=== PATIENT | female | born 1980 | race Two or more races ===

== ENCOUNTER → 2016-10-30 | Outpatient (REF) | payer BC ==
[~2016-10-30] MED LIST: KEFLEX PO; KENALOG TOP
== END ==
LOC: M SFHCPLAZ 09:25
PROVIDERS: ATTEND Physician Assistant
DX: E78.2 Mixed hyperlipidemia (principal)

== ENCOUNTER → 2016-11-13 | Outpatient (REF) | payer BC ==
[2016-11-13 12:35] LABS: ALBUMIN 3.9 GM/DL (3.2-5.2); ALBUMIN/GLOBULIN RATIO 1.34 (1.00-1.93); ALKALINE PHOSPHATASE 63 U/L (45-117); ALT/SGPT 25 U/L (12-78); ANION GAP 11 MEQ/L (8-16); AST/SGOT 20 U/L (15-37); BILIRUBIN,TOTAL 0.7 MG/DL (0.2-1.0); BLOOD UREA NITROGEN 17 MG/DL (7-18); CARBON DIOXIDE LEVEL 31 MEQ/L (21-32); CHLORIDE LEVEL 100 MEQ/L (98-107); CREATININE FOR GFR 0.89 MG/DL (0.55-1.02); GLOMERULAR FILTRATION RATE > 60.0 (>60); GLUCOSE, FASTING 79 MG/DL (70-105); MAGNESIUM LEVEL 1.9 MG/DL (1.8-2.4); POTASSIUM SERUM 3.3 MEQ/L (3.5-5.1); SODIUM LEVEL 142 MEQ/L (136-145); TOTAL PROTEIN 6.8 GM/DL (6.4-8.2)
== END ==
LOC: M SFHCPLAZ 09:29
PROVIDERS: ATTEND Physician Assistant
DX: I10 Essential (primary) hypertension (principal)

== ENCOUNTER → 2016-12-25 | Outpatient (REF) | payer BC ==
[2016-12-25 12:48] LABS: ALBUMIN 3.8 GM/DL (3.2-5.2); ALBUMIN/GLOBULIN RATIO 1.36 (1.00-1.93); ALKALINE PHOSPHATASE 60 U/L (45-117); ALT/SGPT 18 U/L (12-78); ANION GAP 8 MEQ/L (8-16); AST/SGOT 17 U/L (15-37); BILIRUBIN,TOTAL 0.8 MG/DL (0.2-1.0); BLOOD UREA NITROGEN 11 MG/DL (7-18); CARBON DIOXIDE LEVEL 28 MEQ/L (21-32); CHLORIDE LEVEL 105 MEQ/L (98-107); CREATININE FOR GFR 0.92 MG/DL (0.55-1.02); GLOMERULAR FILTRATION RATE > 60.0 (>60); GLUCOSE, FASTING 89 MG/DL (70-105); POTASSIUM SERUM 3.8 MEQ/L (3.5-5.1); SODIUM LEVEL 141 MEQ/L (136-145); TOTAL PROTEIN 6.6 GM/DL (6.4-8.2)
== END ==
LOC: M SFHCPLAZ 09:25
PROVIDERS: ATTEND Physician Assistant
DX: I10 Essential (primary) hypertension (principal)

== ENCOUNTER → 2017-01-31 | Outpatient (REF) | payer BC | LOC: M SFHCPLAZ 09:56 | PROVIDERS: ATTEND Family Medicine | DX: M79.1 Myalgia (principal) ==

== ENCOUNTER → 2018-11-29 | Outpatient (CLI) | payer BC ==
[2018-11-29 17:01] LABS: ALBUMIN 4.2 GM/DL (3.2-5.2); ALT/SGPT 18 U/L (12-78); BLOOD UREA NITROGEN 12 MG/DL (7-18); CARBON DIOXIDE LEVEL 24 MEQ/L (21-32); CHLORIDE LEVEL 104 MEQ/L (98-107); CHOLESTEROL LEVEL 281 MG/DL (<200); CHOLESTEROL RISK RATIO 4.762 (<5); CREATININE FOR GFR 0.87 MG/DL (0.55-1.30); GLOMERULAR FILTRATION RATE > 60.0 (>60); GLUCOSE, FASTING 76 MG/DL (70-100); HDL CHOLESTEROL 59 MG/DL (>40); LDL CHOLESTEROL 199 MG/DL (<100); NON-HDL-C 222 MG/DL; POTASSIUM SERUM 3.2 MEQ/L (3.5-5.1); SODIUM LEVEL 139 MEQ/L (136-145); TOTAL PROTEIN 7.2 GM/DL (6.4-8.2); TRIGLYCERIDES LEVEL 114 MG/DL (<150)
== END ==
LOC: M WUC 14:02
PROVIDERS: ATTEND Family Medicine
DX: Z86.39 Personal history of other endocrine, nutritional and metabolic disease (principal)

== ENCOUNTER 2018-12-27 13:48 | Emergency (ER) | payer BC ==
[~2018-12-27] VITALS: Ht 167.6 cm; Wt 70.5 kg
[2018-12-27] MEDS ORDERED: ATOR40TA75 (13:55)
[2018-12-27] MEDS ORDERED: CHLO125TA (13:55)
[2018-12-27 15:56] LABS: BASO % 0.3 % (0.0-1.0); EOS # 0.3 10^3/uL (0.0-0.50); EOS % 3.5 % (0.0-3.0); HEMATOCRIT 40.7 % (36.0-47.0); HEMOGLOBIN 14.6 g/dl (12.0-15.5); LYMPH # 1.3 10^3/uL (1.5-4.5); LYMPH % 13.7 % (24.0-44.0); MEAN CORPUSCULAR HEMOGLOBIN 32.7 pg (27.0-33.0); MEAN CORPUSCULAR HGB CONC 35.9 g/dl (32.0-36.5); MEAN CORPUSCULAR VOLUME 91.3 fl (80.0-96.0); MONO # 0.4 10^3/uL (0.0-0.8); MONO % 4.4 % (0.0-5.0); NEUTROPHILS # 7.1 10^3/uL (1.8-7.7); NEUTROPHILS % 77.7 % (36.0-66.0); PLATELET COUNT, AUTOMATED 195 10^3/uL (150-450); RED BLOOD COUNT 4.46 10^6/uL (4.00-5.40); WHITE BLOOD COUNT 9.2 10^3/uL (4.0-10.0)
[2018-12-27 15:59] LABS: INFLUENZA A AMPLIFICATION NEGATIVE (NEGATIVE); INFLUENZA B AMPLIFICATION NEGATIVE (NEGATIVE)
[2018-12-27 16:33] LABS: BLOOD UREA NITROGEN 9 MG/DL (7-18); CALCIUM LEVEL 8.4 MG/DL (8.5-10.1); CARBON DIOXIDE LEVEL 27 MEQ/L (21-32); CHLORIDE LEVEL 100 MEQ/L (98-107); CREATININE FOR GFR 0.79 MG/DL (0.55-1.30); GLOMERULAR FILTRATION RATE > 60.0 (>60); GLUCOSE, FASTING 99 MG/DL (70-100); POTASSIUM SERUM 2.4 MEQ/L (3.5-5.1); SODIUM LEVEL 138 MEQ/L (136-145)
[2018-12-27 17:09] VITALS: BP 127/86
[2018-12-27] MEDS ORDERED: POTASSIUM CHLORIDE 10% LIQ 20 MEQ/15 ML UDC PO ONE (17:15)
[2018-12-27] MEDS ORDERED: POTA20TA6 PO (17:19)
== END 2018-12-27 17:45 | disposition home or self-care (01) ==
LOC: M ED 13:48
DX: E87.6 Hypokalemia (principal); I10 Essential (primary) hypertension; E78.5 Hyperlipidemia, unspecified; Z79.899 Other long term (current) drug therapy

== ENCOUNTER → 2018-12-31 | Outpatient (CLI) | payer BC ==
[~2018-12-31] MED LIST changes: +ATOR40TA75; +CHLO125TA; +POTA20TA6 PO
[2018-12-31 19:23] LABS: BLOOD UREA NITROGEN 11 MG/DL (7-18); CALCIUM LEVEL 9.9 MG/DL (8.5-10.1); CARBON DIOXIDE LEVEL 28 MEQ/L (21-32); CHLORIDE LEVEL 109 MEQ/L (98-107); CREATININE FOR GFR 0.76 MG/DL (0.55-1.30); GLOMERULAR FILTRATION RATE > 60.0 (>60); GLUCOSE, FASTING 81 MG/DL (70-100); SODIUM LEVEL 142 MEQ/L (136-145)
== END ==
LOC: M WUC 16:55
PROVIDERS: ATTEND Hospitalist
DX: E87.6 Hypokalemia (principal)

== ENCOUNTER → 2019-12-26 | Outpatient (REF) | payer BC ==
[2019-12-26 13:20] LABS: CHOLESTEROL RISK RATIO 3.294 (<5)
== END ==
LOC: M SFHCPLAZ 09:55
PROVIDERS: ATTEND Family Medicine
DX: E78.00 Pure hypercholesterolemia, unspecified (principal)

== ENCOUNTER → 2020-01-28 | Outpatient (REF) | payer BC ==
[2020-01-28 13:25] LABS: BLOOD UREA NITROGEN 15 MG/DL (7-18); CALCIUM LEVEL 9.2 MG/DL (8.5-10.1); CARBON DIOXIDE LEVEL 27 MEQ/L (21-32); CHLORIDE LEVEL 106 MEQ/L (98-107); GLOMERULAR FILTRATION RATE > 60.0 (>58); GLUCOSE, FASTING 87 MG/DL (70-100); POTASSIUM SERUM 3.1 MEQ/L (3.5-5.1); SODIUM LEVEL 140 MEQ/L (136-145)
== END ==
LOC: M SFHCPLAZ 10:01
PROVIDERS: ATTEND Family Medicine
DX: I10 Essential (primary) hypertension (principal)

== ENCOUNTER → 2020-04-01 | Outpatient (REF) | payer BC | LOC: M LAB REF 09:17 | PROVIDERS: ATTEND Dermatology | DX: L81.4 Other melanin hyperpigmentation (principal); D23.61 Other benign neoplasm of skin of right upper limb, including shoulder; D22.4 Melanocytic nevi of scalp and neck ==

== ENCOUNTER 2023-03-05 21:27 | Emergency (ER) | payer OTHER, BC ==
[~2023-03-05] VITALS: Ht 165.1 cm; Wt 72.0 kg
[~2023-03-05 21:27] MED LIST changes: +POTA-151 PO; -POTA20TA6 PO
[2023-03-05 22:00] LABS: BASO # 0.1 10^3/uL (0.0-0.2); BASO % 1.1 % (0.0-1.0); EOS # 0.2 10^3/uL (0.0-0.5); EOS % 2.2 % (0.0-3.0); HEMATOCRIT 43.2 % (36.0-47.0); LYMPH # 3.4 10^3/uL (1.5-5.0); LYMPH % 35.4 % (24.0-44.0); MEAN CORPUSCULAR HEMOGLOBIN 33.1 pg (27.0-33.0); MEAN CORPUSCULAR HGB CONC 34.7 g/dl (32.0-36.5); MEAN CORPUSCULAR VOLUME 95.4 fl (80.0-96.0); MONO # 0.4 10^3/uL (0.0-0.8); MONO % 4.2 % (2.0-8.0); NEUTROPHILS # 5.4 10^3/uL (1.5-8.5); NEUTROPHILS % 56.8 % (36.0-66.0); PLATELET COUNT, AUTOMATED 230 10^3/uL (150-450); RED BLOOD COUNT 4.53 10^6/uL (4.00-5.40); WHITE BLOOD COUNT 9.5 10^3/uL (4.0-10.0)
[2023-03-05 22:01] VITALS: BP 122/68; O2SAT 98
[2023-03-05] MEDS ORDERED: BOOSTRIX VACCINE (TETANUS/DIPHTH/ACEL. PERTUSSIS) 0.5ML SYR IM.IMMUN ONE (22:55)
[2023-03-05 23:32] LABS: HIVEXPOSED0 NEGATIVE (NEGATIVE)
[2023-03-06 22:22] LABS: HEPATITIS B SURFACE ANTIGEN NEGATIVE (NEGATIVE)
[2023-03-06 22:44] LABS: HEPATITIS B CORE ANTIBODY IGM NEGATIVE (NEGATIVE); HEPATITIS C VIRUS ABY INDEX 0.08 INDEX (<0.8)
[2023-03-06 22:45] LABS: ALBUMIN 3.9 G/DL (3.2-5.2); ALKALINE PHOSPHATASE 65 U/L (46-116); ALT/SGPT < 9 U/L (7.0-40); AST/SGOT 15 U/L (<34); BILIRUBIN,TOTAL 0.5 MG/DL (0.3-1.2); BLOOD UREA NITROGEN 12 MG/DL (9-23); CARBON DIOXIDE LEVEL 22 MMOL/L (20-31); CHLORIDE LEVEL 109 MMOL/L (98-107); CREATININE FOR GFR 0.81 MG/DL (0.55-1.30); GLOMERULAR FILTRATION RATE > 60.0 (>58); GLUCOSE, FASTING 93 MG/DL (60-100); HEPATITIS B SURFACE ANTIBODY POSITIVE (POSITIVE); POTASSIUM SERUM 3.9 MMOL/L (3.5-5.1); SODIUM LEVEL 140 MMOL/L (136-145); TOTAL PROTEIN 6.3 G/DL (5.7-8.2)
== END 2023-03-06 01:31 | disposition home or self-care (01) ==
LOC: M ED 21:27
DX: Z77.21 Contact with and (suspected) exposure to potentially hazardous body fluids (principal); W46.1XXA Contact with contaminated hypodermic needle, initial encounter; I10 Essential (primary) hypertension; E78.5 Hyperlipidemia, unspecified; Y99.0 Civilian activity done for income or pay; Z79.02 Long term (current) use of antithrombotics/antiplatelets; Z79.899 Other long term (current) drug therapy

== ENCOUNTER → 2023-10-05 | Outpatient (REF) | LOC: M EMP 13:10 | PROVIDERS: ATTEND Family Medicine | DX: Z20.822 Contact with and (suspected) exposure to COVID-19 (principal) ==

== ENCOUNTER → 2024-01-18 | Outpatient (REF) | payer OTHER, BC | LOC: M SFHCDERM 17:38 | PROVIDERS: ATTEND Physician Assistant | DX: D22.5 Melanocytic nevi of trunk (principal) ==

== ENCOUNTER 2024-02-16 20:47 | Inpatient (IN) | payer BC, OTHER ==
[~2024-02-16] VITALS: Ht 167.6 cm; Wt 79.0 kg
[2024-02-16] MEDS: HYDROMORPHONE HCL 0.5 MG/ 0.5 ML SYRINGE IV PRN (21:03)
[2024-02-16 21:39] LABS: LIPASE 59 U/L (12-53)
[2024-02-16 21:41] LABS: ALBUMIN 3.7 G/DL (3.2-5.2); ALKALINE PHOSPHATASE 66 U/L (46-116); ALT/SGPT 18 U/L (7.0-40); AST/SGOT 17 U/L (<34); BILIRUBIN,DIRECT 0.1 MG/DL (<0.4); BILIRUBIN,TOTAL 0.5 MG/DL (0.3-1.2); BLOOD UREA NITROGEN 12 MG/DL (9-23); CALCIUM LEVEL 9.3 MG/DL (8.5-10.1); CARBON DIOXIDE LEVEL 21 MMOL/L (20-31); CHLORIDE LEVEL 112 MMOL/L (98-107); CREATININE FOR GFR 0.77 MG/DL (0.55-1.30); GLOMERULAR FILTRATION RATE > 60.0 (>58); GLUCOSE, FASTING 125 MG/DL (60-100); POTASSIUM SERUM 4.2 MMOL/L (3.5-5.1); SODIUM LEVEL 141 MMOL/L (136-145); TOTAL PROTEIN 6.2 G/DL (5.7-8.2)
[2024-02-16 22:34] LABS: BASO # 0.1 10^3/uL (0.0-0.2); BASO % 0.4 % (0.0-1.0); EOS # 0.1 10^3/uL (0.0-0.5); EOS % 0.6 % (0.0-3.0); HEMATOCRIT 41.5 % (36.0-47.0); HEMOGLOBIN 14.1 g/dl (12.0-15.5); LYMPH # 2.3 10^3/uL (1.5-5.0); LYMPH % 16.5 % (24.0-44.0); MEAN CORPUSCULAR HEMOGLOBIN 32.7 pg (27.0-33.0); MEAN CORPUSCULAR VOLUME 96.3 fl (80.0-96.0); MONO # 0.6 10^3/uL (0.0-0.8); MONO % 3.9 % (2.0-8.0); NEUTROPHILS # 10.9 10^3/uL (1.5-8.5); NEUTROPHILS % 77.8 % (36.0-66.0); RED BLOOD COUNT 4.31 10^6/uL (4.00-5.40)
[2024-02-16] MEDS ORDERED: LOSA50TA28 PO (22:44)
[2024-02-16] MEDS ORDERED: ROSU5TAB40 PO (22:44)
[2024-02-16] MEDS ORDERED: HOME MED LIST COMPLETE! XX SCH (22:45)
[2024-02-16] MEDS ORDERED: NORCO, ANEXSIA 5/325MG TABLET (HYDROcodone/ACETAMINOPHEN) PO PRN (23:20)
[2024-02-16] MEDS ORDERED: HYDROMORPHONE HCL 0.5 MG/ 0.5 ML SYRINGE IV PRN (23:35)
[2024-02-17] VITALS (19 sets, daily range): BP systolic 111–166; BP diastolic 70–104; TEMP 96–98.5; O2SAT 93–98
[2024-02-17] MEDS: HYDROMORPHONE HCL 0.5 MG/ 0.5 ML SYRINGE IV PRN ×3 (00:20→16:15)
[2024-02-17] MEDS: NS 1,000 ML IV SCH (01:41)
[2024-02-17] MEDS: cefTRIAXone SOD 1 GM in D5W MINI-BAG PLUS 50 ML IV SCH (01:41)
[2024-02-17] MEDS ORDERED: HYDROMORPHONE HCL 0.5 MG/ 0.5 ML SYRINGE IV PRN ×3 (01:55→09:15)
[2024-02-17] MEDS: HYDROMORPHONE HCL 0.5 MG/ 0.5 ML SYRINGE IV ONE (02:35)
[2024-02-17 04:52] LABS: HEMOGLOBIN 13.7 g/dl (12.0-15.5); MEAN CORPUSCULAR HEMOGLOBIN 33.2 pg (27.0-33.0); MEAN CORPUSCULAR HGB CONC 34.3 g/dl (32.0-36.5); MEAN CORPUSCULAR VOLUME 96.9 fl (80.0-96.0); PLATELET COUNT, AUTOMATED 150 10^3/uL (150-450); RED BLOOD COUNT 4.13 10^6/uL (4.00-5.40)
[2024-02-17 05:20] LABS: ALBUMIN 3.4 G/DL (3.2-5.2); ALKALINE PHOSPHATASE 56 U/L (46-116); ALT/SGPT 18 U/L (7.0-40); AST/SGOT 9 U/L (<34); BILIRUBIN,TOTAL 0.6 MG/DL (0.3-1.2); BLOOD UREA NITROGEN 11 MG/DL (9-23); CALCIUM LEVEL 8.9 MG/DL (8.5-10.1); CARBON DIOXIDE LEVEL 24 MMOL/L (20-31); CHLORIDE LEVEL 112 MMOL/L (98-107); CREATININE FOR GFR 0.79 MG/DL (0.55-1.30); GLOMERULAR FILTRATION RATE > 60.0 (>58); GLUCOSE, FASTING 119 MG/DL (60-100); POTASSIUM SERUM 4.3 MMOL/L (3.5-5.1); SODIUM LEVEL 142 MMOL/L (136-145); TOTAL PROTEIN 5.8 G/DL (5.7-8.2)
[2024-02-17] MEDS ORDERED: ONDANSETRON 4MG 2ML VIAL IV PRN (09:15)
[2024-02-17] MEDS ORDERED: fentaNYL 100 MCG/2 ML INJECTION IV PRN (09:15)
[2024-02-17] MEDS ORDERED: oxyCODONE 5MG TAB PO PRN (09:15)
[2024-02-17] MEDS: LR 1,000 ML IV SCH (09:15)
[2024-02-17] MEDS ORDERED: LIDOCAINE 2% 100MG/5ML SDV (FOR ANES.) As Ordered ONE (09:28)
[2024-02-17] MEDS ORDERED: MIDAZOLAM INJ 2MG/2ML VIAL As Ordered ONE (09:28)
[2024-02-17] MEDS ORDERED: fentaNYL 100 MCG/2 ML INJECTION As Ordered ONE (09:28)
[2024-02-17] MEDS ORDERED: propofoL 500 MG/50 ML VIAL As Ordered ONE (09:28)
[2024-02-17] MEDS ORDERED: KETAMINE HCL 200MG/20ML VIAL As Ordered ONE (09:33)
[2024-02-17] MEDS ORDERED: PHENYLephrine 500MCG 5ML (100MCG/ML) SYRINGE As Ordered ONE (10:04)
[2024-02-17] MEDS ORDERED: ePHEDrine SULFATE 25 MG/5 ML(5MG/ML) SYRINGE As Ordered ONE (10:04)
[2024-02-17] MEDS: ceFAZolin 2 GM/D5W 50 ML IV BAG As Ordered ONE (10:08)
[2024-02-17] MEDS ORDERED: ONDANSETRON 4MG 2ML VIAL As Ordered ONE (10:32)
[2024-02-17] MEDS ORDERED: PILL CUTTER 1 EACH XX ONE (12:33)
[2024-02-17] MEDS: ROSUVASTATIN 10 MG TAB (CRESTOR) PO SCH (12:37)
[2024-02-17] MEDS: LOSARTAN 25 MG TAB PO SCH (12:37)
[2024-02-17] MEDS: PERCOCET 5MG/325MG TAB PO PRN (14:42)
[2024-02-17] MEDS: KETOROLAC 30 MG/ML 1ML VIAL IV SCH (18:30)
[2024-02-17] MEDS: ceFAZolin SOD 2 GM in IV 1 EA IV SCH (20:23)
[2024-02-17] MEDS: HEPARIN SOD (PORCINE) 5000UNITS/ML 1ML VIAL/SYRINGE SQ SCH (20:24)
[2024-02-18 03:14] VITALS: BP 107/66; TEMP 97.6; O2SAT 95
[2024-02-18 07:47] VITALS: BP 116/78; TEMP 97.8; O2SAT 96
[2024-02-18] MEDS: ONDANSETRON 4MG 2ML VIAL IV SCH (09:20)
[2024-02-18 09:21] VITALS: BP 122/68
[2024-02-18] MEDS: MIRALAX *UNIT DOSE* 17GM PACKET PO SCH (09:21)
[2024-02-18] MEDS: ULTRACET TAB PO PRN (10:43)
[2024-02-18 12:27] VITALS: BP 106/64; TEMP 97.5; O2SAT 92
[2024-02-18] MEDS ORDERED: TRAM37.53 PO (14:13)
[2024-02-19] MEDS ORDERED: CEFD1CAP9 PO (08:57)
[2024-02-19] MEDS ORDERED: TRAM50TA2 PO (09:40)
== END 2024-02-18 16:08 | disposition home or self-care (01) | DRG 308 ==
LOC: EDBD 20:47 → M ED 20:47 → M ED INP 23:32 → M PCU 02-17 00:58
PROVIDERS: ADMIT Preventive Medicine Undersea and Hyperbaric Medicine; ATTEND Hospitalist
PROC: 0QSB04Z Reposition Right Lower Femur with Internal Fixation Device, Open Approach (ICD-10-PCS; principal; 2024-02-17 10:00)
DX: S72.041A Displaced fracture of base of neck of right femur, initial encounter for closed fracture (principal); I10 Essential (primary) hypertension; E78.5 Hyperlipidemia, unspecified; D72.829 Elevated white blood cell count, unspecified; W01.0XXA Fall on same level from slipping, tripping and stumbling without subsequent striking against object, initial encounter; Y92.003 Bedroom of unspecified non-institutional (private) residence as the place of occurrence of the external cause; Z79.899 Other long term (current) drug therapy

== ENCOUNTER → 2024-02-27 | Outpatient (CLI) | payer BC ==
[~2024-02-27] MED LIST changes: +CEFD1CAP9 PO; +LOSA50TA28 PO; +ROSU5TAB40 PO; +TRAM37.53 PO; +TRAM50TA2 PO
== END ==
LOC: M SOG 07:52
PROVIDERS: ATTEND Orthopaedic Surgery
DX: M25.551 Pain in right hip (principal)

== ENCOUNTER → 2024-04-07 | Outpatient (CLI) | payer BC ==
[~2024-04-07] MED LIST changes: +TRAM-443 PO; -TRAM37.53 PO
== END ==
LOC: M SOG 07:51
PROVIDERS: ATTEND Orthopaedic Surgery
DX: M25.551 Pain in right hip (principal)

== ENCOUNTER → 2024-04-17 | Outpatient (CLI) | payer BC | LOC: M PLARAD 08:21 | PROVIDERS: ATTEND Ophthalmology | DX: H53.2 Diplopia (principal) ==

== ENCOUNTER 2024-04-22 01:38 | Inpatient (IN) | payer BC ==
[2024-04-22] VITALS (13 sets, daily range): BP systolic 140–168; BP diastolic 88–110; TEMP 97.8; O2SAT 94–97
[~2024-04-22] VITALS: Ht 167.6 cm; Wt 77.4 kg
[~2024-04-22 01:38] MED LIST changes: -TRAM-443 PO; +TRAM1TAB42 PO
[2024-04-22 02:32] LABS: BASO # 0.1 10^3/uL (0.0-0.2); EOS # 0.4 10^3/uL (0.0-0.5); EOS % 3.3 % (0.0-3.0); HEMATOCRIT 44.4 % (36.0-47.0); HEMOGLOBIN 15.2 g/dl (12.0-15.5); LYMPH # 5.1 10^3/uL (1.5-5.0); LYMPH % 44.4 % (24.0-44.0); MEAN CORPUSCULAR HGB CONC 34.2 g/dl (32.0-36.5); MEAN CORPUSCULAR VOLUME 96.5 fl (80.0-96.0); MONO # 0.7 10^3/uL (0.0-0.8); MONO % 6.2 % (2.0-8.0); NEUTROPHILS # 5.2 10^3/uL (1.5-8.5); NEUTROPHILS % 44.9 % (36.0-66.0); PLATELET COUNT, AUTOMATED 245 10^3/uL (150-450); WHITE BLOOD COUNT 11.5 10^3/uL (4.0-10.0)
[2024-04-22 02:46] LABS: BLOOD UREA NITROGEN 13 MG/DL (9-23); CALCIUM LEVEL 9.5 MG/DL (8.5-10.1); CARBON DIOXIDE LEVEL 24 MMOL/L (20-31); CHLORIDE LEVEL 107 MMOL/L (98-107); CK-MB VALUE MASS < 1.0 NG/ML (<3.6); CREATININE FOR GFR 0.68 MG/DL (0.55-1.30); GLOMERULAR FILTRATION RATE > 60.0 (>58); GLUCOSE, FASTING 99 MG/DL (60-100); POTASSIUM SERUM 3.9 MMOL/L (3.5-5.1); SODIUM LEVEL 137 MMOL/L (136-145)
[2024-04-22 02:56] LABS: CPK CREATINE PHOSPHOKINASE 84 U/L (34-145); MB/CK RELATIVE INDEX 1.19 (< OR =4)
[2024-04-22] MEDS: NS 500 ML IV ONE (03:05)
[2024-04-22] MEDS: LABETALOL 100MG/20ML VIAL IV STA ×2 (03:07→03:44)
[2024-04-22] MEDS ORDERED: ISOVUE-370 76% 100ML VIAL As Ordered ONE (03:18)
[2024-04-22 03:41] LABS: CK-MB VALUE MASS < 1.0 NG/ML (<3.6)
[2024-04-22 04:18] LABS: CPK CREATINE PHOSPHOKINASE 84 U/L (34-145); MB/CK RELATIVE INDEX 1.19 (< OR =4)
[2024-04-22 04:20] LABS: APPEARANCE, URINE CLEAR (CLEAR); BACTERIA, URINE AUTO NEGATIVE (NEGATIVE); BILIRUBIN, URINE AUTO NEGATIVE (NEGATIVE); BLOOD, URINE BLOOD NEGATIVE (NEGATIVE); COLOR, URINE STRAW (YELLOW); GLUCOSE, URINE (UA) AUTO NEGATIVE (NEGATIVE); KETONE, URINE AUTO NEGATIVE (NEGATIVE); LEUKOCYTE ESTERASE, URINE AUTO TRACE (NEGATIVE); NITRITE, URINE AUTO NEGATIVE (NEGATIVE); PROTEIN, URINE AUTO NEGATIVE (NEGATIVE); RBC, URINE AUTO 0 /HPF (0-3); SPECIFIC GRAVITY URINE AUTO 1.016 (1.002-1.035); SQUAMOUS EPITHELIAL CELL UR AU 4 /HPF (0-6); UROBILINOGEN, URINE AUTO 0.2 mg/dL (0.0-2.0); WBC, URINE AUTO 1 /HPF (0-3)
[2024-04-22] MEDS: MAG SULF 1GM/100ML (MAG RUN) 1 GM in IV 1 EA IV ONE (04:45)
[2024-04-22] MEDS: KETOROLAC 30 MG/ML 1ML VIAL IV ONE (04:45)
[2024-04-22] MEDS: METOCLOPRAMIDE INJ 10MG/2ML VIAL IV ONE (04:45)
[2024-04-22 05:09] LABS: CREATININE,RANDOM URINE 40.7 MG/DL
[2024-04-22] MEDS ORDERED: MOM 30ML SUSPENSION UDC PO PRN (05:45)
[2024-04-22] MEDS ORDERED: HOME MED LIST COMPLETE! XX SCH (06:10)
[2024-04-22] MEDS ORDERED: ASPI-615 PO (06:10)
[2024-04-22] MEDS ORDERED: VITA-148 PO (06:10)
[2024-04-22] MEDS ORDERED: VITA100093 PO (06:10)
[2024-04-22] MEDS ORDERED: LOSA100T46 PO (06:10)
[2024-04-22] MEDS ORDERED: EXCETAB32 PO (06:10)
[2024-04-22] MEDS: niCARdipine IV 40 MG in IV 1 EA IV SCH (06:28)
[2024-04-22] MEDS ORDERED: PILL CUTTER 1 EACH XX PRN (08:10)
[2024-04-22] MEDS: VITAMIN D 1,000 INTERNATIONAL UNITS TABLET PO SCH (09:00)
[2024-04-22] MEDS: ACETAMINOPHEN TAB 650MG DOSE (2X325MG) PO PRN (09:01)
[2024-04-22] MEDS: LOSARTAN 50MG TABLET PO SCH (09:01)
[2024-04-22] MEDS: ASPIRIN 81MG ENTERIC TABLET PO SCH (09:01)
[2024-04-22] MEDS: amLODIPine 5 MG TAB PO SCH (09:02)
[2024-04-22] MEDS: ENOXAPARIN 40MG/0.4ML SYRINGE (J1650 PER 10MG) SC SCH (09:02)
[2024-04-22] MEDS: EXCEDRIN MIGRAINE TABLET PO PRN (09:40)
[2024-04-22] MEDS ORDERED: AMLO1TAB24 PO (15:21)
[2024-04-23] MEDS ORDERED: ROSUVASTATIN 10 MG TAB (CRESTOR) PO SCH (09:00)
== END 2024-04-22 15:51 | disposition home or self-care (01) | DRG 199 ==
LOC: M ED 01:38 → M ED INP 05:41 → M ICU 09:26
PROVIDERS: ADMIT Internal Medicine Pulmonary Disease; ATTEND Internal Medicine Pulmonary Disease
DX: I16.9 Hypertensive crisis, unspecified (principal); N20.0 Calculus of kidney; E78.5 Hyperlipidemia, unspecified; G43.909 Migraine, unspecified, not intractable, without status migrainosus; Z79.82 Long term (current) use of aspirin; Z79.899 Other long term (current) drug therapy; I10 Essential (primary) hypertension

== ENCOUNTER → 2024-06-11 | Outpatient (CLI) | payer BC ==
[~2024-06-11] MED LIST changes: +AMLO1TAB24 PO; +ASPI-615 PO; +EXCETAB32 PO; +LOSA100T46 PO; +VITA-148 PO; +VITA100093 PO
== END ==
LOC: M SOG 07:20
PROVIDERS: ATTEND Physician Assistant
DX: M25.551 Pain in right hip (principal)

== ENCOUNTER → 2024-08-18 | Outpatient (CLI) | payer BC ==
[~2024-08-18] MED LIST changes: -ROSU5TAB40 PO; +ROSU5TAB49 PO
== END ==
LOC: M SOG 09:05
PROVIDERS: ATTEND Orthopaedic Surgery
DX: S72.141D Displaced intertrochanteric fracture of right femur, subsequent encounter for closed fracture with routine healing (principal)

== ENCOUNTER → 2024-08-29 | Outpatient (REF) | LOC: M EMP 10:21 | PROVIDERS: ATTEND Family Medicine | DX: Z11.52 Encounter for screening for COVID-19 (principal) ==

== ENCOUNTER → 2025-04-16 | Outpatient (CLI) | payer BC | LOC: M PLARAD 14:36 | PROVIDERS: ATTEND Ophthalmology | DX: H53.2 Diplopia (principal) ==

== ENCOUNTER 2025-07-22 19:09 | Emergency (ER) | payer OTHER, BC ==
[~2025-07-22] VITALS: Ht 167.6 cm; Wt 86.0 kg
[2025-07-22 19:11] VITALS: TEMP 98
[2025-07-22] MEDS ORDERED: ISOVUE-370 76% 100 ML VIAL As Ordered ONE (19:35)
[2025-07-22 19:57] LABS: BASO # 0.1 10^3/uL (0.0-0.2); BASO % 0.8 % (0.0-1.0); EOS # 0.2 10^3/uL (0.0-0.5); EOS % 1.4 % (0.0-3.0); LYMPH # 3.6 10^3/uL (1.5-5.0); LYMPH % 30.3 % (24.0-44.0); MONO # 0.6 10^3/uL (0.0-0.8); MONO % 5.1 % (2.0-8.0); NEUTROPHILS # 7.4 10^3/uL (1.5-8.5); NEUTROPHILS % 62.0 % (36.0-66.0); PLATELET COUNT, AUTOMATED 222 10^3/uL (150-450)
[2025-07-22 20:17] LABS: ALT/SGPT 18.0 U/L (7.0-40); AST/SGOT 19.0 U/L (<34)
[2025-07-22] MEDS: KETOROLAC 30 MG/ML 1 ML VIAL IV ONE (20:18)
[2025-07-22 21:15] VITALS: BP 140/87
[2025-07-22 21:24] VITALS: O2SAT 97
== END 2025-07-22 21:36 | disposition home or self-care (01) ==
LOC: M ED 19:09
DX: R07.9 Chest pain, unspecified (principal); V49.40XA Driver injured in collision with unspecified motor vehicles in traffic accident, initial encounter; M50.323 Other cervical disc degeneration at C6-C7 level; K76.89 Other specified diseases of liver; K76.0 Fatty (change of) liver, not elsewhere classified; K57.30 Diverticulosis of large intestine without perforation or abscess without bleeding; E78.5 Hyperlipidemia, unspecified; I10 Essential (primary) hypertension; Z96.641 Presence of right artificial hip joint; Z79.82 Long term (current) use of aspirin; Z79.899 Other long term (current) drug therapy; Y99.0 Civilian activity done for income or pay; Y92.410 Unspecified street and highway as the place of occurrence of the external cause; Y93.89 Activity, other specified
CPT/HCPCS: 70450; 71260; 72125; 73060; 74177; 80047; 80076; 83690; 85025; 86850; 86900; 86901; 96374; 99284; J1885; Q9967